=== PATIENT | female | born 1980 | race American Indian/Alaskan Native ===

== ENCOUNTER 2017-03-04 20:28 | Outpatient (CLI) | payer OTHER ==
[2017-03-04 20:37] VITALS: BP 114/56
--- NOTE | 2017-03-05 07:30 | Ultrasound Report ---
OB ULTRASOUND HISTORY: Vaginal bleeding during . COMPARISON: None at this facility. TECHNIQUE: Transabdominal ultrasound with Doppler interrogation. Gestation: Single Position: Breech Amniotic Fluid: Normal URIAH = 21.1 cm Placenta: Anterior Placental Grade: 1 Heart Rate: 152 BPM Cervical length: 5.8 cm (Normal > 3 cm) NEUROANATOMY VISUALIZED: Choroid Plexus Cisterna Magnum Cerebellum Lateral Ventricle ANATOMY VISUALIZED: Stomach Kidneys Bladder Diaphragm 3 Vessel Cord Abd. Cord Insert SPINE VISUALIZED: Limited spine due to position The following are not demonstrated due to maternal body habitus or lie: spine and four-chamber heart. BPD: 5.7 cm = 23 w 4 d HC: 22.9 cm = 24 w 6 d AC: 19.1 cm = 23 w 6 d FL: 4.5 cm = 24 w 6 d HC/AC Ratio: 1.19 Cephalic Index: 70.4 Estimated Weight: 683 grams LMP: 09/11/16 Clinical age = 24 w 6 d EDC: 06/18/17 US Gest. Age = 24 w 2 d EDC: 06/22/17 IMPRESSION: Viable, single intrauterine as described above. No acute abnormality is appreciated.
== END 2017-03-04 23:14 | disposition home or self-care (01) ==
LOC: TRG 20:28 → LD 20:30 → TRG 23:14
PROVIDERS: ATTEND Obstetrics & Gynecology
DX: O09.522 Supervision of elderly multigravida, second trimester (principal); O46.92 Antepartum hemorrhage, unspecified, second trimester; O32.1XX0 Maternal care for breech presentation, not applicable or unspecified; O62.9 Abnormality of forces of labor, unspecified; Z3A.25 25 weeks gestation of pregnancy
CPT/HCPCS: 76805